=== PATIENT | female | born 1975 | race Caucasian/White ===

== ENCOUNTER 2016-11-16 06:40 | Emergency (ER) | payer SELFPAY ==
[2016-11-16 06:54] VITALS: TEMP 98.9; BMI 31.3
--- NOTE | 2016-11-16 07:26 | EDPRACDOC ---
- General Information Chief Complaint: Vaginal Bleeding Stated Complaint: VAGINAL BLEEDING Time Seen by Provider: 11/16/16 07:19 Information Source: Patient Mode of Arrival: Car Home Medications: Home Medications Ketorolac Tromethamine [Toradol] 10 mg PO Q6H PRN #20 tab 11/16/16 Medroxyprogesterone Acetate [Provera] 10 mg PO BID #14 tablet 11/16/16 Allergies/Adverse Reactions: Allergies Allergy/AdvReac Type Severity Reaction Status Date / Time acetaminophen [From Percocet] Allergy Severe Hives* Verified 11/16/16 06:55 oxycodone [From Percocet] Allergy Severe Hives* Verified 11/16/16 06:55 phenazopyridine Allergy Severe Hives* Verified 11/16/16 06:55 [From Pyridium] venom-honey bee Allergy Severe Anaphylaxis Verified 11/16/16 06:55 * - History of Present Illness Onset: RESEARCH ADVISOR HPI: PATIENT HAS A HX OF IRREGULAR MENSES WITH CURRENT MENSES PRESENT FOR 20 DAYS. SHE STATES RECENTLY SHE HAS HAD MENSES 2 TIMES PER MONTH. THEY HAD DISCUSSED A UTERINE ABLATION DUE TO HEAVY BLEEDING IN THE PAST- SHE REFUSED. STATES SHE HAS HAD TUBAL LIGATION. DENIES ABDOMINAL PAIN. NO FEVER. PREVIOUSLY TRIED CONTROL WITH OUT RESULTS. Description: Reports: Spontaneous Location: Reports: External Vagina Last Menstrual Period: 10/05/16 Control Method: Reports: BTL Pain Severity: None # Tampons Used in the Last 12/24 Hours: 2 Associated Signs & Symptoms: Reports: Vaginal Bleeding. Denies: Dyspareunia, Dysuria, Abdominal Pain, Nausea, Vomiting ED Past Medical History - History Reviewed Yes Nurses notes reviewed and agree except as marked Travel Outside of [place] in the Last 3 Months?: No - Patient Medical History Psychological History: Reports: Anxiety. Denies: Depression Surgical History: Reports: Cholecystectomy - Social Medical History Smoking Status: Heavy tobacco smoker (5 or more cigarettes/day or daily pipe/ cigar) ETOH: None Substance Abuse: None Lives With: Family Lives In: Home EDM Review of Systems - Review of Systems ROS Negative Except as Marked: Yes All systems reviewed and were negative except as marked Constitutional: No Symptoms Reported. negative: Fever, Chills, Weakness, Fatigue, Loss of Appetite Eyes: No Symptoms Reported. negative: Redness, Blurred Vision, Double Vision, Discharge, Pain, Light Sensitive, Photophobia Ears: No Symptoms Reported. negative: Pain, Hearing Loss, Drainage, Ear Pulling Throat: No Symptoms Reported. negative: Pain, Swelling Nose: No Symptoms Reported. negative: Congestion, Bleeding, Discharge, Injection, Swelling, Deformity, Ecchymosis, Tender, Abrasion, Laceration Mouth: No Symptoms Reported. negative: Pain, Drooling Respiratory: No Symptoms Reported. negative: Cough, Brassy Cough, Barky Cough, Shortness of Breath, Wheezing, Hemoptysis Cardiovascular: No Symptoms Reported. negative: Chest Pain, Palpitations, Syncope, Edema, Orthopnea, PND, Skin Mottling, Cyanosis Gastrointestinal: No Symptoms Reported. negative: Pain, Constipation, Nausea, Vomiting, Diarrhea, Melena, Formula Intolerance Genitourinary: Vaginal Bleeding. negative: Bleeding, Dysuria, Discharge, Frequency, Hematuria, , Testicular Pain Neurological: No Symptoms Reported. negative: Headache, Dizziness, Seizure, Numbness, Weakness, Speech Difficulty, Gait Difficulty Musculoskeletal: No Symptoms Reported. negative: Neck, Chestwall, Ribs, Back, Shoulder, Arm, Elbow, Forearm, Wrist, Hand, Pelvis, Hip, Femur, Knee, Leg, Ankle , Foot Integumentary: No Symptoms Reported. negative: Itching, Rash, Bruising, Wound Allergic/Immunologic: No Symptoms Reported. negative: Hives, Itching Hematologic: No Symptoms Reported. negative: Lymphadenopathy, Easy Bruising, Easy Bleeding Endocrine: No Symptoms Reported. negative: Weight Gain, Weight Loss Psychiatric: No Symptoms Reported. negative: Anxiety, Depression, Hallucinations, Insomnia, Suicidal - Physical Exam Constitutional: Alert (Awake), No apparent distress Oriented to: Time, Person, Place Last recorded Vital Signs: Last Vital Signs Temp 98.9 F 11/16/16 06:50 Pulse 72 11/16/16 06:50 Resp 20 11/16/16 06:50 BP 146/70 11/16/16 06:50 Pulse Ox 99 11/16/16 06:50 Oxygen Pulse Oxygen Saturation 99 O2 Device Room Air Oxygen Flow Rate Fraction of Inspired Oxygen ( FIO2) - HEENT Head: Normal ( normocephalic) Eye Exam: Normal (PERRL, EOMI, Sclera white) Oropharynx: Normal (Pharynx:Moist without exudate,Gums-no swelling) Tympanic Membrane: Normal ENT EAC: Normal TMJ: Normal Nose: No Symptoms Reported (septum midline) Neck: Normal (FROM, trachea at midline) - Respiratory/Cardiovascular Respiratory: Normal - CTA (BBS clear to auscultation without adventitious sounds ) Cardiovascular: Normal (RRR without murmur, gallop or rub) - GI Auscultation: Normal (NABS) Palpation: Normal (Soft,No rebound or guarding, non distended) Tenderness: Non tender [place]'s Sign: Negative - Musculoskeletal Back: Normal (Non-Tender) Extremities: Normal (Normal tone, Pulses 2+ No cyanosis or edema, FROM) - Integumentary Skin: Normal, Warm, Dry Lymphatics: Normal (no adenopathy) - Neurologic Memory Impaired: Normal Motor Function: Normal (Normal tone, Pulses 2+ No cyanosis or edema, FROM) Cranial Nerve: Normal (CN II-X11 intact sensation, strength 5/5) Cerebellar: Normal Mood Description: Normal Perception: Normal ED Vaginal Exam External: Normal Vaginal Exam: Blood Vaginal Lesions: None Vaginal Discharge: None Cervix: Blood Uterus: Normal size Adnexa: Normal - Results 11/16/16 07:40 Decision Time to Discharge: 08:39 - Departure Yes I personally saw and evaluated the patient. Disposition: Home Condition: Stable Final Diagnosis: Dysfunctional uterine bleeding Instructions: Dysfunctional Uterine Bleeding (ED) Education/Counseling Given To: Patient Education/Counseling Given Regarding: Diagnosis, Treatment, Prognosis, Follow Up Referrals: None,No Provider [Primary Care Provider] - One Week Sandra Allen MD [Staff Physician] - One Week Prescriptions: Ketorolac Tromethamine [Toradol] 10 mg PO Q6H PRN #20 tab PRN Reason: Pain Medroxyprogesterone Acetate [Provera] 10 mg PO BID #14 tablet - Physician Consulted JAR CAPPER Time Called: 08:24 Provider Called: Sandra Allen Time [employer] Returned Call: 08:24 (START PROVERA- WILL SEE IN THE OFFICE)
[2016-11-16 08:00] LABS: AUTOMATED BASOPHIL 0.3 % (0-2); AUTOMATED EOSINOPHIL 1.4 % (0-5); AUTOMATED LYMPH 24.1 % (17-44); AUTOMATED MONOCYTE 5.3 % (3-10); AUTOMATED NEUTROPHIL 68.9 % (45-76); MPV 7.6 fL (7.4-10.4)
[2016-11-16 08:22] LABS: PARTIAL THROMB. TIME 22.2 SEC (22-35)
[2016-11-16 09:24] VITALS: BP 132/75; PULSE 61
== END 2016-11-16 09:22 | disposition home or self-care (01) ==
LOC: ED 06:40
DX: N93.8 Other specified abnormal uterine and vaginal bleeding (principal)
CPT/HCPCS: 36415; 81025; 85025; 85610; 85730; 99283